=== PATIENT | female | born 1945 | race Caucasian/White ===

== ENCOUNTER → 2018-08-08 | Day surgery (SDC) | payer MEDICARE ==
[2018-08-04 15:14] LABS: BASOPHILS % 0.7 % (0.0-1.0); EOSINOPHILS # (AUTO) 0.1 (0.0-0.4); EOSINOPHILS % 1.4 % (0.0-6.0); HEMATOCRIT 37.9 % (34.2-44.1); HEMOGLOBIN 12.3 g/dL (12.0-16.0); LYMPHOCYTES # (AUTO) 1.3 (1.0-3.2); LYMPHOCYTES % 21.6 % (18.0-39.1); MEAN CORPUSCULAR HEMOGLOBIN 27.8 pg (28-32); MEAN CORPUSCULAR HGB CONC 32.5 g/dL (31-35); MEAN CORPUSCULAR VOLUME 85.7 fL (81-99); MONOCYTES # (AUTO) 0.4 (0.2-0.8); MONOCYTES % 7.5 % (4.4-11.3); NEUTROPHILS % 68.5 % (38.7-80.0); PLATELET COUNT 286 x10e3/uL (140-360); RED BLOOD COUNT 4.42 x10e6/uL (3.6-5.1); RED CELL DISTRIBUTION WIDTH 14.6 % (11.7-14.4)
[2018-08-04 15:43] LABS: ANION GAP 14.5 mmol/L (8-16); CALCIUM 9.9 mg/dL (8.4-10.2); CREATININE, SERUM 1.04 mg/dL (0.57-1.11); POTASSIUM 3.5 mmol/L (3.5-5.1)
--- NOTE | 2018-08-04 15:53 | Diagnostic Imaging Report ---
EXAMINATION: PA and lateral views of the chest. COMPARISON: None CLINICAL HISTORY: Preoperative study for foot surgery DISCUSSION: The lungs are well-inflated and without focal airspace consolidation, pleural effusion, or pneumothorax. Tortuous thoracic aorta with atherosclerotic calcification. Posterior mediastinal convexity with an air-fluid level compatible with a moderate hiatal hernia. No pulmonary edema. Healing fractures of the left posterior sixth and seventh ribs with osseous callus formation. Advanced degenerative arthrosis of the right glenohumeral joint. Multilevel degenerative disc changes of the thoracolumbar spine. IMPRESSION: No acute cardiopulmonary abnormality. Signed by: Dr. Chepe Aponte M.D. on 08/04/2018 3:50 PM
[~2018-08-08] MED LIST: ALENDRONATE SOD70 MG; BACITRACIN 50,000 UNIT VIAL ONE; BACTRIM DS TAB1 EACH PO; BUPIVACAINE HCL 0.5% INJ 30 ML VIAL INJ ONE; CEFAZOLIN SOD 1 GM/NS 50ML 50 ML IV ONE; DEXAMETHASONE SOD PHOS INJ 4 MG/ML VIAL ONE; DICLOFENAC PO; FENTANYL CITRATE/PF 100MCG/2 ML INJ ONE; FLECTOR1 EACH; FLOMAX0.4 MG PO; LIDOCAINE HCL 2% LOCAL INJ 5 ML SDV VIAL INJ ONE; LOSARTAN-HCTZ1 EAC1 PO; MIDAZOLAM HCL 2 MG/2 ML VIAL ONE; NAPROXEN500 MG PO; OMEPRAZOLE20 MG PO; ONDANSETRON HCL INJ 2MG/ML 2ML 2 MG/ML VIAL ONE; PROPOFOL IV EMULSION 10 MG/ML 20 ML VIAL ONE; SEVOFLURANE INHAL SOLN 250 ML PEN BTL ONE; SIMVASTATIN40 MG PO; TAMSULOSIN HCL0.4 MG PO; ULTRAM50 MG PO
--- OUTSIDE RECORDS SUMMARY | 2018-08-08 05:14 | XMS REPORT ---
Author Author [facility] Address Unknown Phone Unavailable Care Team Providers Care Marine Painter Name Role Phone Ryanne MARIEE Unavailable Unavailable Problems This patient has no known problems. Allergies, Adverse Reactions, Alerts This patient has no known allergies or adverse reactions. Medications This patient has no known medications. Results Test Description Test Time Test Comments Text Results Atomic Results Result Comments CHEST 2 VIEWS 2018-08-04 15:47:00 [place] [address] Patient Name: BRIDGETT WANG MR #: [id number] : 1945 Age/Sex: 72/F Req #: [id number] Adm Physician: Ordered by: Ryanne MARIEE DPM Report #: [id number] Location: OR Room/Bed: Procedure: [id number] DX/CHEST 2 VIEWS Exam Date: Exam Time: REPORT STATUS: Signed EXAMINATION: PA and lateral views of the chest. COMPARISON: None CLINICAL HISTORY: Preoperative study for foot surgery DISCUSSION: The lungs are well-inflated and without focal airspace consolidation, pleural effusion, or pneumothorax. Tortuous thoracic aorta with atherosclerotic calcification. Posterior mediastinal convexity with an air-fluid level compatible with a moderate hiatal hernia. No pulmonary edema. Healing fractures of the left posterior sixth and seventh ribs with osseous callus formation. Advanced degenerative arthrosis of the right glenohumeral joint. Multilevel degenerative disc changes of the thoracolumbar spine. IMPRESSION: No acute cardiopulmonary abnormality. Signed by: Dr. Nicolle Arias M.D. on 08/04/2018 3:50 PM Dictated By: NICOLLE ARIAS MD 0101 Transcribed By: JIHAN on 08/04/18 2228 COPY TO: Ryanne MARIEE DPM
--- NOTE | 2018-08-08 07:39 | Operative Report ---
DATE OF PROCEDURE: 08/08/2018 SURGEON: Checo Benedict DPM STEEL DIE ENGRAVER SURGEON: Ryanne Chambers DPM PREOPERATIVE DIAGNOSIS: Right second digit osteomyelitis. POSTOPERATIVE DIAGNOSIS: Right second digit osteomyelitis. PLANNED PROCEDURE: Right second digit amputation. STEEL DIE ENGRAVER: Checo Benedict DPM. ANESTHESIA: General with a preoperative block consisting of 15 mL of % Marcaine plain. HEMOSTASIS: Esmarch tourniquet applied for approximately 10 minutes. MATERIALS: 3-0 nylon. ESTIMATED BLOOD LOSS: Less than 10 mL. PATHOLOGY: Bone sent for anaerobic and aerobic cultures as well as pathology. PROCEDURE NOTE: The patient was seen in the preoperative waiting room. The correct procedure site were identified. The patient was brought to the operating room, placed on the operating table in the supine position. General anesthesia was initiated at this time. Local anesthesia was achieved to the second digit with approximately 15 mL of % Marcaine plain. Attention was directed to the distal aspect of the patient's right forefoot, where enlarged dorsal wound was noted to the second proximal interphalangeal joint with bone exposed. The patient has a severe hallux valgus deformity. The decision was made to proceed with the amputation of the right second digit. At this time, utilizing two converging semielliptical incisions, the case was started along the second metatarsophalangeal joint. The incision was deepened down to the level of the metatarsophalangeal joint. Utilizing a towel clamp, the distal aspect of the digit was grasped and the digit was disarticulated from the joint, passed off to the back table. The wound was then flushed with copious amounts of sterile saline mixed with bacitracin. The remainder of the skin was prepped for closure by debulking fat removing all dog-ears. The incision site was reapproximated utilizing simple interrupted sutures of 3-0 nylon. The patient tolerated the procedure and anesthesia well. The patient was transferred to the postop recovery with vital signs stable and vascular status intact. The patient was monitored there for a short period time before being sent home with the following written instructions: 1. Keep the dressing clean, dry, and intact. 2. The patient is to remain partial weightbearing with heel touch only in the postop shoe until being seen in the office. 3. The patient was given the office number and instructed to contact us if any problems arise. Dictated by Checo Benedict DPM S KHADIJAH Castellon (Charley)/YAIMA /[id number] FIDEL
[2018-08-08 08:10] VITALS: BP 120/74
== END | disposition home or self-care (01) ==
LOC: OR 05:11
PROVIDERS: ATTEND Podiatrist Foot & Ankle Surgery
DX: M86.9 Osteomyelitis, unspecified (principal); M20.11 Hallux valgus (acquired), right foot; E78.00 Pure hypercholesterolemia, unspecified; I12.9 Hypertensive chronic kidney disease with stage 1 through stage 4 chronic kidney disease, or unspecified chronic kidney disease; N18.9 Chronic kidney disease, unspecified; Z01.810 Encounter for preprocedural cardiovascular examination; Z01.812 Encounter for preprocedural laboratory examination; Z01.818 Encounter for other preprocedural examination
CPT/HCPCS: 28820; 36415; 71046; 80048; 85025; 88304; 88311; 93005; J0690; J1100; J2001; J2250; J2405; J2704

== ENCOUNTER 2019-11-12 14:11 | Inpatient (IN) | payer MEDICARE, OTHER ==
[~2019-11-12] VITALS: Ht 167.6 cm; Wt 72.6 kg
[~2019-11-12 14:11] MED LIST changes: -BACITRACIN 50,000 UNIT VIAL ONE; -BUPIVACAINE HCL 0.5% INJ 30 ML VIAL INJ ONE; -CEFAZOLIN SOD 1 GM/NS 50ML 50 ML IV ONE; -DEXAMETHASONE SOD PHOS INJ 4 MG/ML VIAL ONE; -FENTANYL CITRATE/PF 100MCG/2 ML INJ ONE; -LIDOCAINE HCL 2% LOCAL INJ 5 ML SDV VIAL INJ ONE; -MIDAZOLAM HCL 2 MG/2 ML VIAL ONE; -ONDANSETRON HCL INJ 2MG/ML 2ML 2 MG/ML VIAL ONE; -PROPOFOL IV EMULSION 10 MG/ML 20 ML VIAL ONE; -SEVOFLURANE INHAL SOLN 250 ML PEN BTL ONE
--- NOTE | 2019-11-12 14:44 | Emergency Department Note ---
History of Present Illnes History of Present Illness Chief Complaint: General Medicine Complaints History of Present Illness This is a 73 year old female, with history of hypertension, hyperlipidemia, anemia, and recurrent UTI, who presents with a three-week history of progressively worsening weakness and fatigue. Her symptoms have worsened over the past week, and she is experiencing dizziness on exertion. She denies any shortness of breath, chest pain or tightness. Patient states that she has a history of anemia, but has never required blood transfusion in the past. She states that she had an EGD 2-3 years ago, which was reportedly "normal," and a colonoscopy in 2019 which was also "unremarkable." She denies any orthopnea, PND, or lower extremity edema. She denies any abdominal pain, painful bowel movements, or bright red red blood per rectum. She states that occasionally her bowel movements are "dark in color." She takes Protonix daily for a history of GERD. Patient also takes a baby aspirin once daily and diclofenac 75 mg every other day, for chronic shoulder pain, as she states that she has a rotator cuff injury. Historian: Patient Arrival Mode: Car Production Proofreader Required: No Onset (how long ago): week(s) (3) Location: generalized Quality: weakness, fatigue with any exertion Severity: severe Onset quality: gradual Duration (how long): week(s) (3) Timing of current episode: constant Progression: worsening Chronicity: new Context: Reports trauma/injury (pt fell forward onto her chest on 09/06/19, and then developed left hip pain several weeks later;); Denies recent illness, Denies recent surgery, Denies recent travel Relieving factors: none Exacerbating factors: none Associated symptoms: Reports malaise, Reports weakness; Denies chest pain, Denies cough, Denies loss of appetite, Denies nausea/vomiting, Denies shortness of breath Risk factors: Pt takes a baby ASA daily and diclofenac qod; on Bactrim daily, for "years" Past Medical/Family History Physician Review I have reviewed the patient's past medical and family history. Any updates have been documented here. Past Medical History Recent Fever: No Clinical Suspicion of Infectio: No New/Unexplained Change in Ment: No Past Medical History: Hypertension, Kidney Stones, Anemia (never before required blood transfusion;), GERD, Hyperlipedemia, Osteoarthritis Other Medical History: - Recurrent UTI - on suppressive dose of Bactrim daily, for years." - Osteoporosis Past Surgical History: Back Surgery (c-spine;) Other Surgery: - Toe amputated, due to Osteomyelitis Social History Smoking Cessation: Never Smoker Alcohol Use: None Any Illegal Drug Use: No TB Exposure/Symptoms: No Physically hurt or threatened: No Family History Family history of heart diseas: No Other Last Tetanus: Unknown Any Pre-Existing Lines (PICC,: No Is patient up to date on immun: Yes Review of Systems Review of Systems Constitutional: Denies chills, Denies fever Cardiovascular: Denies chest pain, Denies edema, Denies palpitations, Denies syncope Respiratory: Reports no symptoms; Denies cough, Denies pain on inspiration, Denies pain with cough Gastrointestinal: Denies abdominal pain, Denies diarrhea, Denies nausea, Denies vomiting Genitourinary: Reports no symptoms Musculoskeletal: Reports joint pain (left hip) Neurological: Reports no symptoms Psychological: Reports no symptoms Endocrine: Reports no symptoms Hematological/Lymphatic: Reports no symptoms Review of other systems: All other systems negative Physical Exam Related Data Allergies: Coded Allergies: No Known Allergies (Unverified , 10/09/15) Physical Exam CONSTITUTIONAL Constitutional: Present well-developed, Present well-nourished, Present obese, Present other (pale-appearing) HENT HENT: Present normocephalic, Present atraumatic, Present oropharynx clear/moist, Present nose normal; Absent rhinorrhea HENT L/R: Present left ext ear normal, Present right ext ear normal EYES Eyes: Reports PERRL, Reports EOM normal, Reports other (pale conjunctiva) NECK Neck: Present ROM normal, Present supple; Absent cervical adenopathy PULMONARY Pulmonary: Present effort normal, Present breath sounds normal CARDIOVASCULAR Cardiovascular: Present regular rhythm, Present heart sounds normal, Present capillary refill normal, Present normal rate, Present murmur (3/6 systolic ejection murmur left upper sternal border) GASTROINTESTINAL Abdominal: Present soft, Present nontender, Present bowel sounds normal; Absent distension, Absent tender GENITOURINARY Genitourinary: Present guaiac result (negative, firm, brown stool in vault;) SKIN Skin: Present warm, Present dry, Present pale; Absent bruising MUSCULOSKELETAL Musculoskeletal: Present ROM normal, Present edema; Absent tenderness NEUROLOGICAL Neurological: Present alert, Present oriented x 3, Present no gross motor or sensory deficits PSYCHOLOGICAL Psychological: Present mood/affect normal, Present behavior normal Results Laboratory Laboratory See attached labs: - CBC - nl except for H/H = 5.4/18.7, plt = 433; - CMP - nl except for BUN = 24; - BNP - nl - Cardiacs - nl, except for myoglobin= 114 ng/ml; Hemoccult - negative, brown stool; Lab results reviewed: Yes Imaging Imaging results reviewed: Yes Impressions [place] [address] Patient Name: BRIDGETT WANG MR #: [id number] : 1945 Age/Sex: 73/F Req #: [id number] Adm Physician: ALLY EDWARD MD Ordered by: JOSELYN VIVEROS MD Report #: [id number] Location: [facility] Room/Bed: [place] [address] Procedure: [id number] HOPD/HIP 2VW LT W/PELVIS - HOPD Exam Date: 11/12/19 Exam Time: 1546 REPORT STATUS: Signed EXAMINATION: HIP 2VW LT W/PELVIS - HOPD INDICATION: Fall COMPARISON: None FINDINGS: AP view of the pelvis and AP and frog-leg views of the left hip demonstrate no acute osseous injury. Mild diffuse osteopenia. Moderate degenerative changes of the right hip joint and severe degenerative changes of the left hip joint. Prominent degenerative changes of the partially visualized lower lumbar spine. IMPRESSION: No acute osseous injury of the pelvis or left hip. Severe left hip joint degenerative changes. Moderate right hip joint degenerative changes. Signed by: Terry Floyd MD on 11/12/2019 4:01 PM Dictated By: TERRY FLOYD MD 1601 Transcribed By: JIHAN on 11/12/191600 COPY TO: JOSELYN VIVEROS MD~ [place] [address] Patient Name: BRIDGETT WANG MR #: [id number] : 1945 Age/Sex: 73/F Req #: [id number] Adm Physician: ALLY EDWARD MD Ordered by: JOSELYN VIVEROS MD Report #: [id number] Location: [facility] Room/Bed: [place] [address] Procedure: [id number] HOPD/CXR 2 VIEW - HOPD Exam Date: 11/12/19 Exam Time: 1546 REPORT STATUS: Signed EXAMINATION: CXR 2 VIEW - HOPD INDICATION: Trauma COMPARISON: Chest radiographs of 08/04/2018 FINDINGS: LINES/TUBES:EKG leads overlie the chest. LUNGS:The lungs are well-inflated. No focal consolidation or pulmonary edema. PLEURA:No pleural effusion or pneumothorax. MEDIASTINUM:The cardiomediastinal silhouette appears unchanged in size and shape. Hiatal hernia. Atherosclerotic calcifications of the thoracic aorta. BONES/SOFT TISSUES:No acute osseous injury. Prominent callus formation associated with old left posterior lateral sixth and seventh rib fractures. Prominent degenerative changes of both glenohumeral joints. ABDOMEN:No free air under the diaphragm. IMPRESSION: No focal pneumonia or pulmonary edema. Signed by: Terry Floyd MD on 11/12/2019 3:59 PM Dictated By: TERRY FLOYD MD 080 Transcribed By: JIHAN on 11/12/191558 COPY TO: JOSELYN VIVEROS MD~ Diagnostics Tests Diagnostic test(s) reviewed: Yes Procedures 12 Lead ECG Interpretation ECG Interpretation : ECG: ECG 1 Production Proofreader: Interpreted by ED physician Date: Nov 12, 2019 Time: 15:53 Prior ECG tracings: reviewed Rhythm: sinus rhythm Ectopy: atrial premature contractions Rate: normal BPM: 87 ST segments normal: No ST segment flattening: III, aVL, aVF T waves normal: Yes Other findings: no other findings Q waves: V1, V2 Clinical Impression: abnormal ECG Assessment & Plan Medical Decision Making MDM - Reviewed results of labs with patient, and confirmed that her hemoglobin is 5.4, which will require blood transfusion. - Hemoccult is negative, with brown, firm stool in the vault. - No obvious GI blood loss was occurring. - Patient has been on Bactrim daily, for a number of years, as a suppressive dose for recurrent urinary tract infection. This can have side effects of bone marrow suppression, aplastic anemia, hemolytic anemia, etc. - Case discussed with Dr. Ally Edward, who will admit patient to [facility], for blood transfusion and further of her anemia. Patient is agreeable to the plan. Assessment & Plan Final Impression: (1) Symptomatic anemia (2) Weakness generalized (3) Left hip pain (4) Hyperlipidemia (5) Hypertension Depart Disposition: ADMITTED Home Meds Reported Medications [Diclofenac] No Conflict Check, 75 MG PO TAKE EVERY OTHER DAY 08/08/18 Alendronate Sodium (ALENDRONATE SODIUM) 70 Mg Tablet, 70 MG WEEKLY 08/07/18 Tamsulosin Hcl (TAMSULOSIN HCL) 0.4 Mg Cap.er.24h, 0.4 MG PO DAILY 10/09/15 Sulfamethoxazole/Trimethoprim (BACTRIM DS TABLET) 1 Each Tablet, 1 TAB PO DAILY, TAB 10/09/15 Simvastatin (SIMVASTATIN) 40 Mg Tablet, 40 MG PO DAILY, TAB 10/09/15 Discontinued Reported Medications Tramadol Hcl (ULTRAM) 50 Mg Tablet, 50 MG PO TID, TAB 10/09/15 Omeprazole (OMEPRAZOLE) 20 Mg Capsule.dr, 20 MG PO DAILY 10/09/15 Losartan/Hydrochlorothiazide (LOSARTAN-HCTZ 100-25 MG TAB) 1 Each Tablet, PO DAILY 10/09/15 JOSELYN VIVEROS MD Nov 12, 2019 14:43
--- NOTE | 2019-11-12 14:45 | NUR ---
During guaic test (negative) looked at buttocks and they were reddened and blanchable with skin breakdown beginning on her left buttock near the center.
[2019-11-12] MEDS ORDERED: HYDROCODONE/APAP 5MG-325MG TAB PO ONE (15:30)
[2019-11-12] MEDS ORDERED: ONDANSETRON HCL INJ 2MG/ML 2ML 2 MG/ML VIAL IV PRN (15:45)
--- NOTE | 2019-11-12 16:00 | NUR ---
Report to RAMA Obregon
--- NOTE | 2019-11-12 16:02 | Diagnostic Imaging Report ---
EXAMINATION: CXR 2 VIEW - HOPD INDICATION: Trauma COMPARISON: Chest radiographs of 08/04/2018 FINDINGS: LINES/TUBES:EKG leads overlie the chest. LUNGS:The lungs are well-inflated. No focal consolidation or pulmonary edema. PLEURA:No pleural effusion or pneumothorax. MEDIASTINUM:The cardiomediastinal silhouette appears unchanged in size and shape. Hiatal hernia. Atherosclerotic calcifications of the thoracic aorta. BONES/SOFT TISSUES:No acute osseous injury. Prominent callus formation associated with old left posterior lateral sixth and seventh rib fractures. Prominent degenerative changes of both glenohumeral joints. ABDOMEN:No free air under the diaphragm. IMPRESSION: No focal pneumonia or pulmonary edema. Signed by: Flako Rodriguez MD on 11/12/2019 3:59 PM
--- NOTE | 2019-11-12 16:05 | Diagnostic Imaging Report ---
EXAMINATION: HIP 2VW LT W/PELVIS - HOPD INDICATION: Fall COMPARISON: None FINDINGS: AP view of the pelvis and AP and frog-leg views of the left hip demonstrate no acute osseous injury. Mild diffuse osteopenia. Moderate degenerative changes of the right hip joint and severe degenerative changes of the left hip joint. Prominent degenerative changes of the partially visualized lower lumbar spine. IMPRESSION: No acute osseous injury of the pelvis or left hip. Severe left hip joint degenerative changes. Moderate right hip joint degenerative changes. Signed by: Flako Rodriguez MD on 11/12/2019 4:01 PM
--- NOTE | 2019-11-12 16:17 | NUR ---
[facility] called to transport pt to room 110
--- NOTE | 2019-11-12 17:30 | NUR ---
[facility] here to transport pt to room 110
[2019-11-12] MEDS ORDERED: ASPIR 8181 MG (17:40)
[2019-11-12] MEDS ORDERED: PROTONIX20 MG PO (17:40)
[2019-11-12] MEDS ORDERED: LOSARTAN POTAS100 MG PO (17:40)
[2019-11-12] MEDS ORDERED: HYDROCHLOROTHIA25 MG (17:40)
[2019-11-12 17:55] VITALS: BP 129/70
[2019-11-12 18:26] VITALS: BP 129/70
[2019-11-12 18:43] VITALS: BP 129/70
[2019-11-12] MEDS ORDERED: SODIUM CHLORIDE 0.9% 250ML 250 ML IV ONE (19:15)
[2019-11-12] MEDS ORDERED: FUROSEMIDE INJ 10 MG/ML 2 ML VIAL IV ONE ×3 (19:15)
--- NOTE | 2019-11-12 19:55 | NUR ---
RECEIVED REPORT FROM PREVIOUS NURSE. CALL LIGHT WITHIN REACH. PATIENT IN BED. ROUNDING PERFORMED.
[2019-11-12 20:00] VITALS: BP 128/67
[2019-11-12] MEDS: HYDROCODONE/APAP 10MG-325MG TAB PO PRN (20:36)
[2019-11-12 20:41] VITALS: BP 128/67
[2019-11-12] MEDS: SODIUM CHLORIDE FLUSH 10 ML SYR INJ PRN (21:33)
[2019-11-12 22:37] LABS: BASOPHILS # (AUTO) 0.1 (0.0-0.1); BASOPHILS % 0.6 % (0.0-1.0); EOSINOPHILS # (AUTO) 0.1 (0.0-0.4); LYMPHOCYTES # (AUTO) 1.4 (1.0-3.2); LYMPHOCYTES % 17.9 % (18.0-39.1); MEAN CORPUSCULAR HEMOGLOBIN 19.7 pg (28-32); MEAN CORPUSCULAR HGB CONC 26.9 g/dL (31-35); MEAN CORPUSCULAR VOLUME 72.9 fL (81-99); MONOCYTES # (AUTO) 0.6 (0.2-0.8); MONOCYTES % 7.3 % (4.4-11.3); NEUTROPHILS # (AUTO) 5.7 (2.1-6.9); NEUTROPHILS % 72.9 % (38.7-80.0); PLATELET COUNT 392 x10e3/uL (140-360); RED BLOOD COUNT 2.29 x10e6/uL (3.6-5.1); RED CELL DISTRIBUTION WIDTH 18.3 % (11.7-14.4)
[2019-11-12 22:39] LABS: HEMATOCRIT 16.7 % (34.2-44.1); HEMOGLOBIN 4.5 g/dL (12.0-16.0)
[2019-11-13] VITALS (13 sets, daily range): BP systolic 98–136; BP diastolic 50–78
[2019-11-13] MEDS: HYDROCODONE/APAP 10MG-325MG TAB PO PRN ×6 (00:57→23:42)
[2019-11-13] MEDS ORDERED: SODIUM CHLORIDE 0.9% 250ML 250 ML ONE ×2 (01:47→16:35)
[2019-11-13] MEDS: FUROSEMIDE INJ 10 MG/ML 2 ML VIAL IV PRN ×2 (05:00→19:28)
--- NOTE | 2019-11-13 06:30 | NUR ---
CALLED AND TALKED TO DR. EDWARD ABOUT PATIENT COMPLAINING THAT THE NORCO IS NOT WORKING AND SHE WANTS A CORTISONE SHOT. DR. EDWARD SAID HE WILL SEE HER TODAY.
--- NOTE | 2019-11-13 07:28 | NUR ---
GAVE BEDSIDE SHIFT REPORT TO ONCOMING NURSE. CALL LIGHT WITHIN REACH. PATIENT IN BED. HOURLY ROUNDING PERFORMED.
--- NOTE | 2019-11-13 07:29 | NUR ---
received bedside shift report from PM nurse. pt in stable condition.
[2019-11-13 08:50] LABS: BASOPHILS # (AUTO) 0.1 (0.0-0.1); EOSINOPHILS # (AUTO) 0.1 (0.0-0.4); EOSINOPHILS % 1.5 % (0.0-6.0); LYMPHOCYTES # (AUTO) 1.3 (1.0-3.2); LYMPHOCYTES % 18.1 % (18.0-39.1); MEAN CORPUSCULAR HEMOGLOBIN 20.8 pg (28-32); MEAN CORPUSCULAR HGB CONC 27.2 g/dL (31-35); MEAN CORPUSCULAR VOLUME 76.5 fL (81-99); MONOCYTES # (AUTO) 0.5 (0.2-0.8); MONOCYTES % 6.6 % (4.4-11.3); NEUTROPHILS # (AUTO) 5.2 (2.1-6.9); NEUTROPHILS % 72.4 % (38.7-80.0); PLATELET COUNT 336 x10e3/uL (140-360); RED BLOOD COUNT 2.98 x10e6/uL (3.6-5.1); RED CELL DISTRIBUTION WIDTH 18.6 % (11.7-14.4)
[2019-11-13] MEDS: TAMSULOSIN HCL 0.4 MG CAP PO SCH (09:00)
[2019-11-13] MEDS: HYDROCHLOROTHIAZIDE 25 MG TAB PO SCH (09:00)
[2019-11-13] MEDS: PANTOPRAZOLE SOD 40 MG TABEC PO SCH (09:00)
[2019-11-13 09:12] LABS: ANION GAP 13.5 mmol/L (8-16); CALCIUM 8.5 mg/dL (8.4-10.2); CREATININE, SERUM 1.04 mg/dL (0.57-1.11); POTASSIUM 3.5 mmol/L (3.5-5.1)
[2019-11-13] MEDS: TRIMETHOPRIM/SULFAMETHOXAZOLE 160-800 MG TAB PO SCH (09:15)
[2019-11-13] MEDS: LOSARTAN POTASSIUM 100 MG TAB PO SCH (09:16)
--- NOTE | 2019-11-13 09:17 | History and Physical ---
PRIMARY CARE PHYSICIAN: Dr. Jermaine Euceda. CHIEF COMPLAINT: Symptomatic anemia. Hemoglobin and hematocrit of 4.5 and 16.7 respectively. HISTORY OF PRESENT ILLNESS: The patient is a 73-year-old female with osteoarthritis of both hips, worse on the left compared to the right. In August, the patient failed and having increasing pain. On her home medication list, the patient was taken diclofenac, although she is only taking per patient, Tylenol as needed for pain. She was taken significant amount of Tylenol, however. The patient was still having hip pain. She has a previous workup for her anemia including EGD and colonoscopy, most of them were last year. There was no significant abnormality per patient. Her fecal occult blood in the outpatient emergency room was negative. The patient is otherwise stable except for the left hip pain. She is only having increasing shortness of breath with exertion. She did have order for blood transfusion. PAST MEDICAL HISTORY: Chronic anemia, which worsened symptomatic anemia, osteoarthritis, osteoporosis, hypertension, recurrent urinary tract infection on Bactrim for suppression, hypertension, and dyslipidemia. PAST SURGICAL HISTORY: Low back surgery. She has toe amputation due to osteomyelitis. She had a C-spine back surgery. SOCIAL HISTORY: The patient does not smoke or use alcohol. No regular drugs. ALLERGIES: NO KNOWN ALLERGIES. HOME MEDICATIONS: The patient is on alendronate, aspirin, HCTZ-losartan, Protonix, simvastatin, Bactrim, Flomax, questionable diclofenac. PHYSICAL EXAMINATION: VITAL SIGNS: Temperature is 98, blood pressure 136/66, pulse rate is 64, respirations 18. GENERAL: The patient is not in acute distress. She is awake. HEENT: Normocephalic and atraumatic. Anicteric. NECK: Supple grossly. PULMONARY: Diminished breath sounds without any wheezing or rales. CARDIOVASCULAR: S1, S2. Tachycardia. ABDOMEN: Soft and non-distention. EXTREMITIES: No gross cyanosis or edema. NEUROLOGIC: No gross focal deficit. IMAGING: Chest x-ray is unremarkable. X-ray of both hips show severe left hip joint degenerative changes and moderate right hip joint degenerative changes. IMPRESSION: 1. Severe anemia associated with increasing shortness of breath on exertion and fatigueness. Hemoglobin and hematocrit are 4.5 and 16.7. 2. Severe left hip pain with ambulatory dysfunction due to pain. 3. Multiple chronic medical problems. PLAN: Consultation with Dr. Ping Benson, rotary drill rig operator. Consultation with stunt man, Dr. Jeffers. Get iron workup. Stool for occult blood. [place] as needed for pain. We will get the CT scan of abdomen and pelvis with contrast for the evaluation of anemia and also the left hip pain. Rule out any occult fractures. Repeated lab work today. The TSH, B12, folic acid, part of the anemia workup. MD GERRY Sanchez/YAIMA /[id number]
[2019-11-13] MEDS: GABAPENTIN 100 MG CAP PO SCH ×4 (09:23→23:42)
[2019-11-13 09:26] LABS: HEMATOCRIT 22.8 % (34.2-44.1)
[2019-11-13 09:28] LABS: HEMOGLOBIN 6.2 g/dL (12.0-16.0)
[2019-11-13 09:46] LABS: ANISOCYTOSIS SLIGHT; HYPOCHROMASIA SLIGHT; OVALOCYTES FEW; PLATELET ESTIMATE ADEQUATE; PLATELET MORPHOLOGY COMMENT NORMAL; POLYCHROMASIA FEW; RBC MORPHOLOGY COMMENT ABNORMAL
[2019-11-13 09:55] LABS: THYROID STIMULATING HORMONE 1.28 uIU/mL (0.350-4.940)
[2019-11-13] MEDS ORDERED: SODIUM CHLORIDE 0.9% 250ML 250 ML IV SCH ×2 (11:07→11:15)
[2019-11-13] MEDS ORDERED: SODIUM CHLORIDE 0.9% 50ML 50 ML ONE ×2 (11:29→13:17)
[2019-11-13] MEDS ORDERED: IOPAMIDOL 370 MG/ML 200 ML INFUS..BTL INJ ONE ×2 (11:29→13:17)
[2019-11-13] MEDS ORDERED: PEG (High)/E-LYTE SOLN 4,000 ML BTL PO SCH ×2 (12:00→18:30)
[2019-11-13] MEDS ORDERED: BISACODYL 5 MG TAB EC PO SCH (12:00)
--- NOTE | 2019-11-13 13:37 | Diagnostic Imaging Report ---
EXAM: CT Abdomen and Pelvis WITH intravenous contrast INDICATION: Right hip pain COMPARISON: None. TECHNIQUE: Abdomen and pelvis were scanned utilizing a multidetector helical scanner from the lung base to the pubic symphysis after administration of IV contrast. Coronal and sagittal reformations were obtained. Routine protocol was performed. Scan was performed during portal venous phase. IV CONTRAST: 100mL of Isovue 370 ORAL CONTRAST: Water RADIATION DOSE: Total DLP: 371 mGy*cm Dose modulation, iterative reconstruction, and/or weight based adjustment of the mA/kV was utilized to reduce the radiation dose to as low as reasonably achievable. FINDINGS: LOWER THORAX: Paraesophageal hiatal hernia. HEPATOBILIARY: No focal liver lesion. No biliary ductal dilation. Cholelithiasis with a 2.3 cm gallstone in the dependent gallbladder. No CT evidence of cholecystitis. SPLEEN: No splenomegaly. PANCREAS: No focal masses or ductal dilatation. ADRENALS: No adrenal nodules. KIDNEYS/URETERS: Clustered left lower pole renal calculi measure up to 7 mm. 2 mm right upper pole renal calculus. No hydronephrosis or hydroureter. PELVIC ORGANS/BLADDER: Unremarkable. PERITONEUM / RETROPERITONEUM: No free air or fluid. LYMPH NODES: No lymphadenopathy. VESSELS: Moderate scattered atherosclerotic calcifications of the nonaneurysmal abdominal aorta and major branches. GI TRACT: Mild diverticulosis. No CT evidence of diverticulitis. No abnormal bowel wall thickening. No bowel obstruction. BONES AND SOFT TISSUES: Diffuse osteopenia. Severe levoconvex curvature of the lower lumbar spine with prominent leftward listhesis at L3-4. No acute osseous injury. Specifically, no evidence of acute right hip fracture. IMPRESSION: No right hip fracture. Cholelithiasis without CT evidence of cholecystitis. Bilateral nonobstructive renal calculi, most notably at the left lower pole measuring up to 7 mm. Signed by: Flako Rodriguez MD on 11/13/2019 1:33 PM
--- NOTE | 2019-11-13 19:11 | NUR ---
RECEIVED REPORT FROM PREVIOUS NURSE. CALL LIGHT WITHIN REACH. PATIENT IN BED. ROUNDING PERFORMED
--- NOTE | 2019-11-13 19:41 | Consultation ---
DATE OF CONSULTATION: 11/13/2019 HISTORY OF PRESENT ILLNESS: This is 73 years old, who has history of osteoarthritis, history of depression and hypertension, history of recurrent UTI, presented to the hospital because of severe anemia with hemoglobin as low as 4.5 and with low iron. She denies any abdominal pain, nausea or vomiting along with this problem. She apparently supposedly had some kind of an upper and lower endoscopy some time last year, but we do not have the record of that. PAST MEDICAL PROBLEMS: Chronic anemia, history of osteoarthritis, osteoporosis, hypertension, recurrent urinary tract infections, status post toe amputation for osteomyelitis, C-spine back surgery. ALLERGIES: NONE. MEDICATIONS: At home including alendronate, aspirin, hydrochlorothiazide, losartan, Protonix, simvastatin, and diclofenac. SOCIAL HISTORY: No alcohol use. FAMILY HISTORY: Noncontributory. REVIEW OF SYSTEMS: At this point, denies any chest pain. Denies any shortness of breath. Denies any dysphagia or odynophagia. Denies any dysuria, hematuria, or any kind of syncopal episode. PHYSICAL EXAMINATION: GENERAL: The patient is awake and alert, appears to be stable. VITAL SIGNS: Afebrile currently with stable vital signs. HEAD, EYES, EARS, NOSE, AND THROAT: Normocephalic and atraumatic. Sclerae anicteric. NECK: Supple. HEART: Regular. ABDOMEN: Soft. There is nontender. EXTREMITIES: No clubbing. LABORATORY VALUES: Significant for WBC today 7.17, hemoglobin 6.2, MCV of 76, and iron 13, TIBC 568 . IMPRESSION: 1. Severe iron deficiency anemia. 2. Rule out possibility for GI blood loss. 3. History of osteoarthritis and osteoporosis. RECOMMENDATIONS: Continue current care at this point blood cell. Follow labs. Possibly do colonoscopy for further evaluation. Akash Jeffers MD DHD/MODL /[id number] cc: Favian Green MD
[2019-11-13] MEDS: SIMVASTATIN 40 MG TAB PO SCH (21:21)
[2019-11-13] MEDS ORDERED: PEG (High)/E-LYTE SOLN 4,000 ML BTL PO ONE (22:00)
[2019-11-13] MEDS: SODIUM CHLORIDE FLUSH 10 ML SYR INJ PRN (23:42)
[2019-11-14] VITALS (8 sets, daily range): BP systolic 105–136; BP diastolic 56–86
[2019-11-14 05:11] LABS: BASOPHILS # (AUTO) 0.1 (0.0-0.1); BASOPHILS % 0.8 % (0.0-1.0); EOSINOPHILS # (AUTO) 0.1 (0.0-0.4); EOSINOPHILS % 1.4 % (0.0-6.0); HEMATOCRIT 28.8 % (34.2-44.1); HEMOGLOBIN 8.5 g/dL (12.0-16.0); LYMPHOCYTES # (AUTO) 1.5 (1.0-3.2); LYMPHOCYTES % 16.9 % (18.0-39.1); MEAN CORPUSCULAR HEMOGLOBIN 23.5 pg (28-32); MEAN CORPUSCULAR HGB CONC 29.5 g/dL (31-35); MEAN CORPUSCULAR VOLUME 79.8 fL (81-99); MONOCYTES # (AUTO) 0.7 (0.2-0.8); MONOCYTES % 7.4 % (4.4-11.3); NEUTROPHILS # (AUTO) 6.4 (2.1-6.9); NEUTROPHILS % 73.3 % (38.7-80.0); PLATELET COUNT 299 x10e3/uL (140-360); RED BLOOD COUNT 3.61 x10e6/uL (3.6-5.1); RED CELL DISTRIBUTION WIDTH 19.3 % (11.7-14.4)
[2019-11-14 05:57] LABS: ANION GAP 13.4 mmol/L (8-16); BLOOD UREA NITROGEN 15 mg/dL (7-26); BUN/CREATININE RATIO 17 (6-25); CARBON DIOXIDE 27 mmol/L (22-29); CHLORIDE 104 mmol/L (98-107); EST GLOMERULAR FILTRATION RATE > 60 ML/MIN (60-); GLUCOSE 93 mg/dL (74-118); POTASSIUM 3.4 mmol/L (3.5-5.1); SODIUM 141 mmol/L (136-145)
--- NOTE | 2019-11-14 07:20 | NUR ---
GAVE BEDSIDE SHIFT REPORT TO ONCOMING NURSE. CALL LIGHT WITHIN REACH. PATIENT IN BED. HOURLY ROUNDING PERFORMED.
--- NOTE | 2019-11-14 08:16 | NUR ---
report received from [employer] instructor. Pt had EGD and colonoscopy; states MD found hiatal hernia, gastritis, gastric ulcer which will be treated with medicine. On the colonoscopy, MD reported diverticulosis and hemorrhoids. MD wants to repeat EGD in 3 months and states pt may be discharged home tomorrow.
[2019-11-14] MEDS ORDERED: POTASSIUM CHLORIDE 10MEQ EA PO ONE (08:45)
[2019-11-14] MEDS: TAMSULOSIN HCL 0.4 MG CAP PO SCH (09:00)
[2019-11-14] MEDS: HYDROCHLOROTHIAZIDE 25 MG TAB PO SCH (09:00)
[2019-11-14] MEDS: SUCRALFATE 1 GM TAB PO SCH ×3 (10:23→22:18)
[2019-11-14] MEDS: HYDROCODONE/APAP 10MG-325MG TAB PO PRN ×3 (10:24→22:18)
[2019-11-14] MEDS: GABAPENTIN 100 MG CAP PO SCH ×2 (10:24→18:24)
[2019-11-14] MEDS: PANTOPRAZOLE SOD 40 MG TABEC PO SCH (10:24)
[2019-11-14] MEDS: TRIMETHOPRIM/SULFAMETHOXAZOLE 160-800 MG TAB PO SCH (10:25)
[2019-11-14] MEDS: LOSARTAN POTASSIUM 100 MG TAB PO SCH (10:26)
[2019-11-14] MEDS: IRON SUCROSE 200 MG in SODIUM CHLORIDE 0.9% 100 ML 100 ML IV SCH (10:32)
[2019-11-14] MEDS ORDERED: PROPOFOL IV EMULSION 10 MG/ML 20 ML VIAL ONE (18:41)
[2019-11-14] MEDS ORDERED: LIDOCAINE HCL 2% LOCAL INJ 5 ML SDV VIAL INJ ONE (18:41)
[2019-11-14] MEDS: SIMVASTATIN 40 MG TAB PO SCH (22:18)
[2019-11-15] VITALS (8 sets, daily range): BP systolic 99–113; BP diastolic 52–62
[2019-11-15] MEDS: HYDROCODONE/APAP 10MG-325MG TAB PO PRN ×3 (05:26→21:33)
[2019-11-15] MEDS: GABAPENTIN 100 MG CAP PO SCH ×3 (05:26→21:33)
[2019-11-15] MEDS: HYDROCHLOROTHIAZIDE 25 MG TAB PO SCH (08:26)
[2019-11-15] MEDS: PANTOPRAZOLE SOD 40 MG TABEC PO SCH (08:26)
[2019-11-15] MEDS: SUCRALFATE 1 GM TAB PO SCH ×4 (08:26→21:32)
[2019-11-15] MEDS: TRIMETHOPRIM/SULFAMETHOXAZOLE 160-800 MG TAB PO SCH (08:26)
[2019-11-15] MEDS: TAMSULOSIN HCL 0.4 MG CAP PO SCH (08:26)
[2019-11-15] MEDS: LOSARTAN POTASSIUM 100 MG TAB PO SCH (09:00)
[2019-11-15] MEDS ORDERED: PANTOPRAZOLE 40 MG 10ML VIAL INJ SCH (09:45)
[2019-11-15] MEDS: IRON SUCROSE 200 MG in SODIUM CHLORIDE 0.9% 100 ML 100 ML IV SCH (10:00)
[2019-11-15] MEDS: POTASSIUM CHLORIDE 10MEQ EA PO SCH (12:02)
[2019-11-15] MEDS: PANTOPRAZOLE 40 MG 10ML VIAL IV SCH (16:13)
[2019-11-15] MEDS ORDERED: LIDOCAINE 4% PATCH TP SCH (21:00)
[2019-11-15] MEDS: SIMVASTATIN 40 MG TAB PO SCH (21:32)
[2019-11-16] VITALS: BP 96/53
[2019-11-16 04:00] VITALS: BP 100/51
[2019-11-16 05:20] LABS: BASOPHILS # (AUTO) 0.1 (0.0-0.1); BASOPHILS % 0.9 % (0.0-1.0); EOSINOPHILS # (AUTO) 0.3 (0.0-0.4); EOSINOPHILS % 3.3 % (0.0-6.0); HEMATOCRIT 26.4 % (34.2-44.1); HEMOGLOBIN 7.8 g/dL (12.0-16.0); LYMPHOCYTES # (AUTO) 1.4 (1.0-3.2); LYMPHOCYTES % 14.7 % (18.0-39.1); MEAN CORPUSCULAR HEMOGLOBIN 24.8 pg (28-32); MEAN CORPUSCULAR HGB CONC 29.5 g/dL (31-35); MEAN CORPUSCULAR VOLUME 84.1 fL (81-99); MONOCYTES # (AUTO) 0.7 (0.2-0.8); MONOCYTES % 6.7 % (4.4-11.3); NEUTROPHILS # (AUTO) 7.2 (2.1-6.9); NEUTROPHILS % 73.9 % (38.7-80.0); PLATELET COUNT 206 x10e3/uL (140-360); RED BLOOD COUNT 3.14 x10e6/uL (3.6-5.1); RED CELL DISTRIBUTION WIDTH 22.8 % (11.7-14.4)
[2019-11-16 05:43] LABS: ANION GAP 11.2 mmol/L (8-16); BLOOD UREA NITROGEN 16 mg/dL (7-26); BUN/CREATININE RATIO 19 (6-25); CALCIUM 8.3 mg/dL (8.4-10.2); CARBON DIOXIDE 25 mmol/L (22-29); CHLORIDE 108 mmol/L (98-107); CREATININE, SERUM 0.83 mg/dL (0.57-1.11); EST GLOMERULAR FILTRATION RATE > 60 ML/MIN (60-); GLUCOSE 91 mg/dL (74-118); SODIUM 140 mmol/L (136-145)
[2019-11-16 05:45] LABS: POTASSIUM 4.2 mmol/L (3.5-5.1)
[2019-11-16] MEDS: GABAPENTIN 100 MG CAP PO SCH (06:17)
[2019-11-16] MEDS: HYDROCODONE/APAP 10MG-325MG TAB PO PRN (06:17)
[2019-11-16] MEDS: LOSARTAN POTASSIUM 100 MG TAB PO SCH (07:30)
[2019-11-16] MEDS: POTASSIUM CHLORIDE 10MEQ EA PO SCH (07:32)
[2019-11-16] MEDS: SUCRALFATE 1 GM TAB PO SCH (07:32)
[2019-11-16] MEDS: TAMSULOSIN HCL 0.4 MG CAP PO SCH (07:32)
[2019-11-16] MEDS: TRIMETHOPRIM/SULFAMETHOXAZOLE 160-800 MG TAB PO SCH (07:32)
[2019-11-16] MEDS: PANTOPRAZOLE 40 MG 10ML VIAL IV SCH (07:32)
[2019-11-16] MEDS: HYDROCHLOROTHIAZIDE 25 MG TAB PO SCH (07:32)
--- NOTE | 2019-11-16 07:34 | NUR ---
am meds given early due to elevated blood pressure.
[2019-11-16 08:22] VITALS: BP 142/116
[2019-11-16] MEDS: IRON SUCROSE 200 MG in SODIUM CHLORIDE 0.9% 100 ML 100 ML IV SCH (09:24)
--- NOTE | 2019-11-16 09:43 | Discharge Summary ---
CONSULTANTS: 1. Dr. Akash Jeffers. 2. Dr. Ping Benson. PRIMARY CARE PHYSICIAN: Dr. Jermaine Euceda. FINAL DIAGNOSES: 1. [id number] iron deficiency anemia, status post EGD, finding consistent with acute gastric ulcer with bleed. 2. Symptomatic anemia, much improved with blood transfusion. 3. Hiatal hernia with acute gastric ulcer as finding. 4. Severe osteoarthritis of the left hip. DISCHARGE MEDICATIONS: Tramadol 50 mg q.6 p.r.n., Senokot-S one tablet b.i.d., ferrous sulfate 325 mg daily, Tylenol No. 3 p.r.n., Zofran ODT p.r.n., nifedipine ER 30 mg daily, Carafate suspension 1 g before meals at bedtime. The patient will resume her home medications except for alendronate, aspirin, diclofenac, and HCTZ. FOLLOWUP: The patient to follow up as instructed in approximately 1 to 2 weeks with the primary care physician. The patient will need pain management referral. The patient will need Orthopedic referral for severe left osteoarthritis. SUMMARY: The patient is a 73-year-old female, who came to the hospital because she was having increasing shortness of breath and also severely symptomatic anemia associated with left hip pain. The patient's hemoglobin and hematocrit on admission were very low at 4.5 and 16.7 respectively. Since then, the patient has received a total of 3 units blood transfusion. Hemoglobin and hematocrit now are 7.8 and 26.4, which is appropriate. The patient did receive iron infusion. She is otherwise stable. She had a CT abdomen and pelvis done on November 13, 2019, showed cholecystolithiasis without CT evidence of cholecystitis. No right hip fractures. Bilateral nonobstructive renal calculi. The patient is otherwise stable. She is comfortable. Stool for occult blood was negative. The serology for PCR coronavirus disease 2018 was not detected. Renal function is stable. Electrolyte disorder corrected. The patient is stable today. She will be discharged home with the above medications. Instruction for the patient to follow up with referral as an outpatient to follow up with Dr. Jeffers and also pain management along with Orthopedic in the future for possible left hip replacement pending on further evaluation by a specialist. MD GERRY Sanchez/YAIMA /[id number] cc: Iliana Euceda MD
[2019-11-16] MEDS ORDERED: PANTOPRAZOLE SOD 40 MG TABEC PO SCH (13:15)
== END 2019-11-16 13:05 | disposition home or self-care (01) | DRG 378 ==
LOC: FSED 15:00 → ERHOLD 15:36 → MED/SURG 17:43
PROVIDERS: ADMIT Internal Medicine; ATTEND Internal Medicine
PROC: 30233N1 Transfusion of Nonautologous Red Blood Cells into Peripheral Vein, Percutaneous Approach (ICD-10-PCS; 2019-11-13)
PROC: 0DJD8ZZ Inspection of Lower Intestinal Tract, Via Natural or Artificial Opening Endoscopic (ICD-10-PCS; 2019-11-13)
PROC: 0DB38ZX Excision of Lower Esophagus, Via Natural or Artificial Opening Endoscopic, Diagnostic (ICD-10-PCS; principal; 2019-11-14 07:00)
PROC: 0DB68ZX Excision of Stomach, Via Natural or Artificial Opening Endoscopic, Diagnostic (ICD-10-PCS; 2019-11-14 07:00)
DX: K25.0 Acute gastric ulcer with hemorrhage (principal); D62 Acute posthemorrhagic anemia; M25.552 Pain in left hip; E78.5 Hyperlipidemia, unspecified; I10 Essential (primary) hypertension; Z87.440 Personal history of urinary (tract) infections; K44.9 Diaphragmatic hernia without obstruction or gangrene; K80.20 Calculus of gallbladder without cholecystitis without obstruction; Z11.59 Encounter for screening for other viral diseases; M16.12 Unilateral primary osteoarthritis, left hip; K57.30 Diverticulosis of large intestine without perforation or abscess without bleeding; K64.8 Other hemorrhoids; M81.0 Age-related osteoporosis without current pathological fracture
CPT/HCPCS: 36415; 43239; 45378; 71046; 74177; 80048; 80053; 81003; 82270; 82553; 82607; 82728; 82746; 83540; 83880; 84443; 84466; 84484; 85025; 86850; 86900; 86920; 88305; 88312; 93005; 97139; 99284; J1756; J1940; J2001; J2405; J7050; P9016; Q9967; U0002

== ENCOUNTER 2022-02-08 13:43 | Inpatient (IN) | payer MEDICARE ==
[~2022-02-08] VITALS: Ht 167.6 cm; Wt 72.6 kg
[~2022-02-08 13:43] MED LIST changes: +ASPIR 8181 MG; +HYDROCHLOROTHIA25 MG; +LOSARTAN POTAS100 MG PO; +PROTONIX20 MG PO
[2022-02-08 15:19] LABS: BASOPHILS # (AUTO) 0.1 (0.0-0.1); BASOPHILS % 0.6 % (0.0-1.0); EOSINOPHILS # (AUTO) 0.1 (0.0-0.4); EOSINOPHILS % 1.2 % (0.0-6.0); LYMPHOCYTES # (AUTO) 1.2 (1.0-3.2); LYMPHOCYTES % 12.3 % (18.0-39.1); MEAN CORPUSCULAR HEMOGLOBIN 18.3 pg (28-32); MEAN CORPUSCULAR HGB CONC 25.6 g/dL (31-35); MEAN CORPUSCULAR VOLUME 71.7 fL (81-99); MONOCYTES # (AUTO) 0.4 (0.2-0.8); NEUTROPHILS # (AUTO) 8.1 (2.1-6.9); NEUTROPHILS % 81.6 % (38.7-80.0); PLATELET COUNT 500 x10e3/uL (140-360); RED CELL DISTRIBUTION WIDTH 21.5 % (11.7-14.4)
[2022-02-08 15:23] LABS: HEMATOCRIT 17.2 % (34.2-44.1); HEMOGLOBIN 4.4 g/dL (12.0-16.0)
[2022-02-08 15:26] LABS: INR 1.05; PROTHROMBIN TIME 14.7 seconds (11.9-14.5)
[2022-02-08] MEDS ORDERED: ONDANSETRON HCL INJ 2MG/ML 2ML 2 MG/ML VIAL IV PRN (15:30)
[2022-02-08] MEDS ORDERED: SODIUM CHLORIDE FLUSH 10 ML SYR INJ PRN (15:30)
[2022-02-08] MEDS ORDERED: SODIUM CHLORIDE 0.9% 250ML 250 ML IV ONE (15:30)
[2022-02-08 15:32] LABS: ALANINE AMINOTRANSFERASE 11 IU/L (0-55); ALBUMIN 3.6 g/dL (3.5-5.0); ALKALINE PHOSPHATASE 70 IU/L (40-150); ANION GAP 16.3 mmol/L (8-16); BLOOD UREA NITROGEN 14 mg/dL (7-26); BUN/CREATININE RATIO 14 (6-25); CALCIUM 8.7 mg/dL (8.4-10.2); CARBON DIOXIDE 21 mmol/L (22-29); CHLORIDE 108 mmol/L (98-107); CREATININE, SERUM 1.03 mg/dL (0.57-1.11); GLUCOSE 98 mg/dL (74-118); POTASSIUM 4.3 mmol/L (3.5-5.1); SODIUM 141 mmol/L (136-145)
[2022-02-08 16:23] LABS: FERRITIN 6.93 ng/mL (4.63-204.00)
[2022-02-08] MEDS ORDERED: AMLODIPINE BESYL5 MG PO (21:54)
[2022-02-08] MEDS ORDERED: FAMOTIDINE20 MG PO (21:54)
[2022-02-08] MEDS ORDERED: TYLENOL325 MG PO (21:54)
[2022-02-08] MEDS ORDERED: ASPIRIN81 MG PO (21:54)
[2022-02-08 22:10] VITALS: BP 139/66
[2022-02-08] MEDS ORDERED: SODIUM CHLORIDE 0.9% 250ML 250 ML ONE (23:15)
[2022-02-09] VITALS (7 sets, daily range): BP systolic 139–187; BP diastolic 69–109
[2022-02-09 06:27] LABS: BASOPHILS # (AUTO) 0.1 (0.0-0.1); EOSINOPHILS # (AUTO) 0.2 (0.0-0.4); EOSINOPHILS % 2.4 % (0.0-6.0); HEMATOCRIT 23.6 % (34.2-44.1); HEMOGLOBIN 6.7 g/dL (12.0-16.0); LYMPHOCYTES # (AUTO) 1.2 (1.0-3.2); LYMPHOCYTES % 13.4 % (18.0-39.1); MEAN CORPUSCULAR HGB CONC 28.4 g/dL (31-35); MEAN CORPUSCULAR VOLUME 77.6 fL (81-99); MONOCYTES # (AUTO) 0.6 (0.2-0.8); MONOCYTES % 6.7 % (4.4-11.3); NEUTROPHILS # (AUTO) 6.6 (2.1-6.9); NEUTROPHILS % 76.3 % (38.7-80.0); PLATELET COUNT 408 x10e3/uL (140-360); RED BLOOD COUNT 3.04 x10e6/uL (3.6-5.1); RED CELL DISTRIBUTION WIDTH 22.2 % (11.7-14.4)
[2022-02-09 06:42] LABS: ANION GAP 14.2 mmol/L (8-16); CALCIUM 8.1 mg/dL (8.4-10.2); CREATININE, SERUM 0.81 mg/dL (0.57-1.11); POTASSIUM 4.2 mmol/L (3.5-5.1)
[2022-02-09] MEDS ORDERED: MAGNESIUM100 MG PO (08:27)
[2022-02-09] MEDS ORDERED: SODIUM CHLORIDE 0.9% 250ML 250 ML IV ONE (08:45)
[2022-02-09] MEDS: TAMSULOSIN HCL 0.4 MG CAP PO SCH ×2 (09:00→09:09)
[2022-02-09] MEDS ORDERED: IRON SUCROSE 100 MG in SODIUM CHLORIDE 0.9% 100 ML IV SCH (09:00)
[2022-02-09] MEDS: LOSARTAN POTASSIUM 25 MG TAB PO SCH (09:10)
[2022-02-09] MEDS: AMLODIPINE BESYLATE 5 MG TAB PO SCH (09:10)
[2022-02-09 10:09] LABS: EOSINOPHILS % (MANUAL) 1 % (0-7); LYMPHOCYTES % (MANUAL) 11 % (19-48); MONOCYTES % (MANUAL) 7 % (3.4-9.0); NEUTROPHILS % (MANUAL) 80 % (40-74)
[2022-02-09 10:10] LABS: ANISOCYTOSIS MODERATE; HYPOCHROMASIA MODERATE; MICROCYTOSIS MODERATE; PLATELET ESTIMATE ADEQUATE; PLATELET MORPHOLOGY COMMENT NORMAL; RBC MORPHOLOGY COMMENT ABNORMAL
[2022-02-09] MEDS: FUROSEMIDE INJ 10 MG/ML 2 ML VIAL IV PRN ×2 (13:31→17:16)
[2022-02-09] MEDS: ACETAMINOPHEN 325 MG TAB PO PRN (17:52)
[2022-02-09] MEDS ORDERED: SODIUM CHLORIDE 0.9% 250ML 250 ML ONE (18:06)
[2022-02-09] MEDS ORDERED: MAGNESIUM OTC PO (19:44)
[2022-02-09] MEDS: MAGNESIUM OXIDE 400 MG TAB PO PRN (19:55)
[2022-02-09] MEDS ORDERED: HYDRALAZINE HCL 25 MG TAB PO PRN (22:15)
[2022-02-10] VITALS (7 sets, daily range): BP systolic 131–159; BP diastolic 72–89
[2022-02-10] MEDS: MAGNESIUM OXIDE 400 MG TAB PO PRN (00:45)
[2022-02-10 04:58] LABS: BASOPHILS # (AUTO) 0.1 (0.0-0.1); BASOPHILS % 0.6 % (0.0-1.0); EOSINOPHILS # (AUTO) 0.1 (0.0-0.4); EOSINOPHILS % 0.5 % (0.0-6.0); HEMATOCRIT 33.9 % (34.2-44.1); HEMOGLOBIN 10.7 g/dL (12.0-16.0); LYMPHOCYTES % 6.6 % (18.0-39.1); MEAN CORPUSCULAR HEMOGLOBIN 23.7 pg (28-32); MEAN CORPUSCULAR HGB CONC 31.6 g/dL (31-35); MEAN CORPUSCULAR VOLUME 75.2 fL (81-99); MONOCYTES # (AUTO) 0.7 (0.2-0.8); MONOCYTES % 5.1 % (4.4-11.3); NEUTROPHILS # (AUTO) 12.5 (2.1-6.9); NEUTROPHILS % 86.6 % (38.7-80.0); PLATELET COUNT 417 x10e3/uL (140-360); RED BLOOD COUNT 4.51 x10e6/uL (3.6-5.1); RED CELL DISTRIBUTION WIDTH 21.3 % (11.7-14.4)
[2022-02-10 05:21] LABS: ANION GAP 18.8 mmol/L (8-16); CALCIUM 8.8 mg/dL (8.4-10.2); CREATININE, SERUM 0.77 mg/dL (0.57-1.11)
[2022-02-10 05:25] LABS: POTASSIUM 2.8 mmol/L (3.5-5.1)
[2022-02-10] MEDS ORDERED: POTASSIUM CHLORIDE 20MEQ/100ML 100 ML IV ONE (09:00)
[2022-02-10] MEDS ORDERED: POTASSIUM CHLORIDE 10MEQ EA PO ONE (09:00)
[2022-02-10] MEDS: TAMSULOSIN HCL 0.4 MG CAP PO SCH (09:00)
[2022-02-10] MEDS: LOSARTAN POTASSIUM 25 MG TAB PO SCH (09:33)
[2022-02-10] MEDS: AMLODIPINE BESYLATE 5 MG TAB PO SCH (09:33)
[2022-02-10] MEDS ORDERED: ONDANSETRON HCL 4 MG ORAL DISINTEGRATING TAB PO PRN (13:45)
[2022-02-10] MEDS: ACETAMINOPHEN 325 MG TAB PO PRN ×2 (16:25→21:55)
[2022-02-10] MEDS ORDERED: IRON SUCROSE 100 MG in SODIUM CHLORIDE 0.9% 100 ML IV SCH (18:00)
[2022-02-10] MEDS ORDERED: ACETAMINOPHEN 325 MG TAB PO PRN (21:00)
[2022-02-11] VITALS (9 sets, daily range): BP systolic 130–145; BP diastolic 71–92
[2022-02-11 05:18] LABS: CALCIUM 9.3 mg/dL (8.4-10.2); CREATININE, SERUM 0.81 mg/dL (0.57-1.11)
[2022-02-11] MEDS: TAMSULOSIN HCL 0.4 MG CAP PO SCH (09:00)
[2022-02-11 09:02] LABS: BASOPHILS # (AUTO) 0.1 (0.0-0.1); BASOPHILS % 0.6 % (0.0-1.0); EOSINOPHILS # (AUTO) 0.1 (0.0-0.4); HEMATOCRIT 37.8 % (34.2-44.1); HEMOGLOBIN 11.1 g/dL (12.0-16.0); LYMPHOCYTES # (AUTO) 0.9 (1.0-3.2); LYMPHOCYTES % 7.6 % (18.0-39.1); MEAN CORPUSCULAR HEMOGLOBIN 23.7 pg (28-32); MEAN CORPUSCULAR HGB CONC 29.4 g/dL (31-35); MEAN CORPUSCULAR VOLUME 80.6 fL (81-99); NEUTROPHILS # (AUTO) 10.2 (2.1-6.9); NEUTROPHILS % 82.5 % (38.7-80.0); PLATELET COUNT 386 x10e3/uL (140-360); RED BLOOD COUNT 4.69 x10e6/uL (3.6-5.1); RED CELL DISTRIBUTION WIDTH 22.9 % (11.7-14.4)
[2022-02-11] MEDS: AMLODIPINE BESYLATE 5 MG TAB PO SCH (10:55)
[2022-02-11] MEDS: LOSARTAN POTASSIUM 25 MG TAB PO SCH (10:55)
[2022-02-11] MEDS: IRON SUCROSE 100 MG in SODIUM CHLORIDE 0.9% 100 ML IV SCH (10:59)
[2022-02-11] MEDS: COLLAGENASE 5 GM TUBE TP SCH (10:59)
[2022-02-11] MEDS: LUBIPROSTONE 24 MCG CAP PO SCH ×2 (10:59→17:00)
[2022-02-11] MEDS: SENNA-S TABLET PO SCH ×2 (10:59→17:00)
[2022-02-11 11:49] LABS: LYMPHOCYTES % (MANUAL) 9 % (19-48); MONOCYTES % (MANUAL) 10 % (3.4-9.0); NEUTROPHILS % (MANUAL) 81 % (40-74); PLATELET ESTIMATE ADEQUATE; PLATELET MORPHOLOGY COMMENT NORMAL; RBC MORPHOLOGY COMMENT ABNORMAL
[2022-02-11 11:50] LABS: ANISOCYTOSIS MODERATE; ELLIPTOCYTE, RBC SLIGHT; OVALOCYTES FEW; POIKILOCYTOSIS MODERATE
[2022-02-11] MEDS: ACETAMINOPHEN 325 MG TAB PO PRN (21:42)
[2022-02-12] VITALS: BP 146/81
[2022-02-12 04:00] VITALS: BP 130/71
[2022-02-12 08:47] VITALS: BP 157/90
[2022-02-12] MEDS ORDERED: PROTONIX20 MG PO (08:48)
[2022-02-12] MEDS: SENNA-S TABLET PO SCH (09:00)
[2022-02-12] MEDS: TAMSULOSIN HCL 0.4 MG CAP PO SCH (09:00)
[2022-02-12] MEDS: LUBIPROSTONE 24 MCG CAP PO SCH (09:00)
[2022-02-12 09:18] VITALS: BP 157/90
[2022-02-12] MEDS: AMLODIPINE BESYLATE 5 MG TAB PO SCH (10:09)
[2022-02-12] MEDS: LOSARTAN POTASSIUM 25 MG TAB PO SCH (10:09)
[2022-02-12] MEDS: IRON SUCROSE 100 MG in SODIUM CHLORIDE 0.9% 100 ML IV SCH (10:16)
[2022-02-12] MEDS: COLLAGENASE 5 GM TUBE TP SCH (10:16)
[2022-02-12] MEDS: ACETAMINOPHEN 325 MG TAB PO PRN (11:31)
[2022-02-12 12:46] VITALS: BP 155/82
[2022-02-12] MEDS ORDERED: LIDOCAINE HCL 2% LOCAL INJ 5 ML SDV VIAL INJ ONE (13:36)
[2022-02-12] MEDS ORDERED: PROPOFOL IV EMULSION 10 MG/ML 20 ML VIAL IV ONE (13:36)
[2022-02-12] MEDS ORDERED: PANTOPRAZOLE SOD 40 MG TABEC PO SCH (16:30)
== END 2022-02-12 13:37 | disposition home or self-care (01) | DRG 327 ==
LOC: ER 13:51 → ERHOLD 15:31 → MED/SURG 19:33
PROVIDERS: ADMIT Internal Medicine; ATTEND Internal Medicine
PROC: 30233N1 Transfusion of Nonautologous Red Blood Cells into Peripheral Vein, Percutaneous Approach (ICD-10-PCS; 2022-02-08)
PROC: 0DB74ZZ Excision of Stomach, Pylorus, Percutaneous Endoscopic Approach (ICD-10-PCS; 2022-02-10)
PROC: 0DB64ZZ Excision of Stomach, Percutaneous Endoscopic Approach (ICD-10-PCS; principal; 2022-02-10 14:49)
DX: K25.4 Chronic or unspecified gastric ulcer with hemorrhage (principal); D62 Acute posthemorrhagic anemia; K21.9 Gastro-esophageal reflux disease without esophagitis; K20.90 Esophagitis, unspecified without bleeding; K44.9 Diaphragmatic hernia without obstruction or gangrene; K29.70 Gastritis, unspecified, without bleeding; I10 Essential (primary) hypertension; E78.5 Hyperlipidemia, unspecified; M81.0 Age-related osteoporosis without current pathological fracture; Z87.440 Personal history of urinary (tract) infections; Z87.442 Personal history of urinary calculi; Z89.421 Acquired absence of other right toe(s); Z20.822 Contact with and (suspected) exposure to COVID-19; K64.9 Unspecified hemorrhoids; Z91.14 Patient's other noncompliance with medication regimen
CPT/HCPCS: 0223U; 36415; 43239; 80048; 80053; 82728; 83540; 83735; 84252; 84466; 85025; 85610; 86850; 86900; 86920; 88304; 88305; 88312; 88342; 96361; 99251; 99284; J1756; J1940; J2001; J3480; J7050; P9016